=== PATIENT | female | born 1945 | race Caucasian/White ===

== ENCOUNTER 2020-09-26 07:51 | Day surgery (SDC) | payer MEDICARE ==
[~2020-09-26] VITALS: Ht 162.6 cm; Wt 75.0 kg
[2020-09-26 08:16] LABS: BASOPHILS 0.4 % (0-2); EOSINOPHILS 1.6 % (0-7); HEMATOCRIT 40.5 % (36.0-48.0); HEMOGLOBIN 13.3 g/dL (12-16); IMMATURE GRANULOCYTES 0.3 % (0-5); LYMPHOCYTE ABS# 2.76 10x3/uL (1.18-3.74); LYMPHOCYTES 39.7 % (15-50); MCHC 32.8 g/dL (31.0-37.0); MCV 91.2 fL (80.0-100.0); MONOCYTES 8.6 % (2-11); NEUTROPHIL ABS# 3.43 10x3/uL (1.56-6.13); NEUTROPHILS 49.4 % (40-80); PLATELET COUNT 280 10x3/uL (130-400); RBC 4.44 10x6/uL (4.00-5.40)
[2020-09-26 08:22] LABS: ANION GAP 12.7 mmol/L (8-16); CALCIUM 9.1 mg/dL (8.5-10.1); CARBON DIOXIDE 28.4 mmol/L (21.0-32.0); CREATININE - SERUM 0.8 mg/dL (0.6-1.3); POTASSIUM - SERUM 4.1 mmol/L (3.5-5.1)
[2020-09-26] MEDS ORDERED: OMEPRAZOLE20 M1 PO (09:59)
[2020-09-26] MEDS ORDERED: PEPCID40 MG PO (09:59)
[2020-09-26] MEDS ORDERED: IBANDRONATE SO150 MG PO (10:01)
[2020-09-26] MEDS ORDERED: CO Q-10100 MG PO (10:02)
[2020-09-26] MEDS ORDERED: FISH OIL 1,0001 CA1 PO (10:02)
[2020-09-26] MEDS ORDERED: RED YEAST RICE600 MG PO (10:02)
[2020-09-26] MEDS ORDERED: CALCIUM 600 +1 EAC3 PO (10:03)
[2020-09-26] MEDS ORDERED: MULTI-DAY VITAM1 TAB PO (10:03)
[2020-09-26 10:11] VITALS: BP 161/65; Ht 162.6 cm; Wt 75.0 kg
--- NOTE | 2020-09-26 10:27 | NUR ---
IV STARTED WITH 20G ANGIOCATH RIGHT HAND
--- NOTE | 2020-09-26 13:08 | HP ---
PATIENT: NILA CHEN MEDICAL RECORD: [id number] ACCOUNT: [id number] LOCATION:[facility] : 45 ADMISSION DATE: 09/26/20 PCP: JOANN ROYAL MD HISTORY AND PHYSICAL EXAMINATION HISTORY OF PRESENT ILLNESS: The patient has a gastric polyp. It has been tattooed. I am here to perform an EGD and a gastric polypectomy. PAST MEDICAL AND SURGICAL HISTORY: History of C. difficile colitis, laparoscopy, tonsillectomy. She is hard of hearing. ALLERGIES: No known drug allergies. HOME MEDICATIONS: Pepcid, omeprazole as well as fish oil. SOCIAL HISTORY: Never smoked. FAMILY HISTORY: Mother had a TIA. REVIEW OF SYSTEMS: Negative for coronary artery disease or CVA. Negative for diabetes or thyroid problems. REVIEW OF SYSTEMS: GENERAL: The patient does not appear acutely ill. She does not appear chronically ill. VITAL SIGNS: Reviewed. EARS: External ears appear normal. EYES: Extraocular movements are intact. NECK: Trachea is midline. CHEST: No intercostal retractions. PULMONARY: Nonlabored. No stridor. IMPRESSION: Gastric polyp. PLAN: Gastric polypectomy. TRANSINT:[id number] Voice Confirmation ID: [id number] DOCUMENT ID: [id number] BEN CORDON MD at 1308 CC: FLORES GARCES and JOANN ROYAL MD [id number] DICTATION DATE: 09/26/20 1242 WAGE AND SALARY SPECIALIST: 09/26/[address] [facility] [address] [place] [address]
--- NOTE | 2020-09-26 14:04 | NUR ---
DR. CORDON HAS BEEN AT BEDSIDE. IV D/C'D WITH CANNULA INTACT, PRESSURE HELD AND DRSG PLACED. DISCHARGE INSTRUCTIONS GIVEN AND PT AND VERBALIZED AN UNDERSTANDING.
--- NOTE | 2020-09-27 11:12 | OP ---
PATIENT NAME: NILA CHEN MEDICAL RECORD: [id number] :45 LOCATION:[facility] ADMISSION DATE: SURGEON: TOMY CORDON MD DATE OF OPERATION: 09/26/2020 PREOPERATIVE DIAGNOSIS: History of gastric polyp. POSTOPERATIVE DIAGNOSES: 1. History of gastric polyp with no evidence of recurrence of the polyp. 2. Eleven additional gastric polyps ranging from 4 mm to 1.4 cm. Some pedunculated, some sessile and some not pedunculated. PROCEDURE: 1. Esophagogastroduodenoscopy with antral biopsies to rule out Helicobacter pylori. 2. Gastric high biopsy forceps polypectomy x1. 3. Endoscopic ablation of 10 smaller gastric polyps with the argon plasma horse trader. SURGEON: Tomy Cordon MD ACID WASH OPERATOR: None. BLOOD LOSS: Minimal. ANESTHESIA: IV sedation. COMPLICATIONS: None. ENDOSCOPIC COURSE: The patient was conveyed to endoscopy suite electively on 09/26/2020. IV sedation was induced by the anesthesia staff. A bite block was inserted. A gastroscope was inserted into the mouth. It was advanced easily into the hypopharynx. The esophagus was easily intubated as were the stomach and duodenum. Upon withdrawal, retroflexed and angulus views were obtained. Antral biopsies were obtained. With retroflexion, I noted the largest of the polyps. This was removed utilizing the hot biopsy forceps polypectomy technique. I felt that the other polyps were smaller and likely would not benefit from pathologic examination. The tattoo had "worn off" at the formal polypectomy site, you could see a scar present and there was no recurrence of the polyp within the scar. The endoscope was then withdrawn under direct vision. I will see the patient in the office in 2 to 3 weeks to review the results of the biopsies. I will then turn the patient to endoscopic care back over to Dr. Nogueira, who is assuming a number of Dr. White's patient since she retired. TRANSINT:[id number] Voice Confirmation ID: [id number] DOCUMENT ID: [id number] OPERATIVE REPORT [id number] NILA CHEN ROBERT MD at 1112 CC: [id number] DICTATION DATE: 09/26/20 1614 ELECTRIC MOTOR WINDERS ASSEMBLER: 09/27/20 0034 [facility] 09/26/20 [facility] [address] [place] [place] [address]
== END 2020-09-26 14:30 | disposition home or self-care (01) ==
LOC: D.OPS 07:51
PROVIDERS: ATTEND Surgery
DX: K31.7 Polyp of stomach and duodenum (principal)